=== PATIENT | female | born 1970 | race Caucasian/White ===

== ENCOUNTER → 2016-12-28 | Day surgery (SDC) | payer MEDICARE, BC ==
[~2016-12-28] MED LIST: ADDE30TA PO; ARIC10TA2 PO; ASPI81TA5 PO; BETH25 PO; CARB200T PO; DULA0.5I SQ; ESTR1.5 PO; KLORCONEF PO; LEXA10TA PO; LEXA20TA PO; LIPI40TA PO; LORT7.5T3 PO; LYRI200C PO; MIDAZOLAM HCL 2 MG/2 ML VIAL ONE; MULT-65 PO; NAME10TA PO; ONABOTULINUMTOXINA INJ 100 UNITS/VIAL ONE; OXYC-360 PO; OXYC1TAB36 PO; PANT20TA2 PO; PROPOFOL 200 MG/20 ML AMP IV ONE; REQU5TAB PO; SERO400T PO; SODIUM CHLORIDE 0.9% INJ 10 ML ONE; SOMA350T PO; TAB-TAB PO; VIMP200T PO
--- NOTE | 2016-12-28 15:20 | GIPROC ---
[facility] [address] [place], [address] EGD PROCEDURE REPORT EXAM DATE: 12/28/2016 PATIENT NAME: Sabrina Perkins MR #: [id number] BIRTHDATE: 1970 ATTENDING: Courtney Hoover MD ORDER #: [id number] SYSTEMS PROJECT MANAGER: Laurel Schaefer RN STATUS: outpatient INDICATIONS: The patient is a 46 yr old female here for an EGD due to gastroparesis nausea, vomiting PROCEDURE PERFORMED: EGD w/ biopsy EGD w/ directed submucosal injection(s), any substance MEDICATIONS: None and Per Anesthesia. TOPICAL ANESTHETIC: none CONSENT: The patient understands the risks and benefits of the procedure and understands that these risks include, but are not limited to: sedation, allergic reaction, infection, perforation and/or bleeding. Alternative means of evaluation and treatment include, among others: physical exam, x-rays, and/or surgical intervention. The patient elects to proceed with this endoscopic procedure. medical equipment was checked for proper function. Hand hygiene and appropriate measures for infection prevention was taken. After the risks, benefits and alternatives of the procedure were thoroughly explained, Informed consent was verified, confirmed and timeout was successfully executed by the treatment team. The patient was anesthetized with topical anesthesia and the EC-[id number] ([id number]) and EC-[id number] ([id number]) endoscope was introduced through the mouth and advanced to the second portion of the duodenum. Retroflexed views revealed a hiatal hernia The gastroscope was then slowly withdrawn and removed. Duodenum normal-biopsy to r/o celiac disease retained food in stomach-suctioning gastritis antrum-biopsy esophagitis distal esophgus-white deposits consistent with chema -biopsy. BOTOX injected in pyloric channel-100 units-25 units/quadrant. ADVERSE EVENTS: There were no complications. IMPRESSIONS: 1. Duodenum normal-biopsy to r/o celiac disease retained food in stomach-suctioning gastritis antrum-biopsy esophagitis distal esophgus-white deposits consistent with chema -biopsy 2. Retroflexed views revealed a hiatal hernia RECOMMENDATIONS: 1. Await biopsy results. Biopsy results will not be ready for 7-10 days. If you don't hear from us in two weeks, call our office for biopsy results. 2. Anti-reflux regimen 3. Continue PPI 4. General surgery consult for possible biliary diskinezia breath test for bacterila overgrowth Nystatin swish and swallow fu office if no improvement consider referal tertiary center for small bowel manometry /pacer ? PATIENT CONDITION: stable DISPOSITION: Home REPEAT EXAM: EGD pending biopsy results Courtney Hoover MD eSigned: Courtney Hoover MD 12/28/2016 3:20 PM cc: Emanuel Ventura [facility] Sonia Mujica M.D. PATIENT NAME: Sabrina Perkins MR#: [id number]
== END | disposition home or self-care (01) ==
LOC: ESDC 12:44
PROVIDERS: ATTEND Internal Medicine Gastroenterology
DX: K31.84 Gastroparesis (principal); R11.2 Nausea with vomiting, unspecified; K44.9 Diaphragmatic hernia without obstruction or gangrene; K29.70 Gastritis, unspecified, without bleeding; K20.9 Esophagitis, unspecified
CPT/HCPCS: 00740; 43236; 43239; 88305; 88312; J0585; J2250; J3010

== ENCOUNTER 2017-02-06 20:26 | Emergency (ER) | payer MEDICARE, BC ==
[~2017-02-06] VITALS: Ht 162.6 cm; Wt 70.0 kg
[~2017-02-06 20:26] MED LIST changes: -KLORCONEF PO; -MIDAZOLAM HCL 2 MG/2 ML VIAL ONE; -ONABOTULINUMTOXINA INJ 100 UNITS/VIAL ONE; -PROPOFOL 200 MG/20 ML AMP IV ONE; -SODIUM CHLORIDE 0.9% INJ 10 ML ONE
[2017-02-06 20:27] VITALS: BP 137/69; PULSE 84; RESP 16; TEMP 98.1; O2SAT 97
--- NOTE | 2017-02-06 20:40 | PD ---
Physical Exam Date Seen by Provider: Feb 06, 2017 Time Seen by Provider: 20:36 Narrative 46 yo female here for N/V/D for months. Follows with Dr Sandoval. Everything has been tried with no relief. Continues to throw up whatever she eats. Cannot keep anything down. Was told by Dr Sandoval's office to come and get seen. Vitals stable in triage. Awaiting bed placement. Data Data Last Documented VS Vital Signs Date Time Temp Pulse Resp B/P (MAP) Pulse Ox O2 Delivery O2 Flow Rate FiO2 02/06/17 20:27 98.1 84 16 137/69 (91) 97 Room Air [facility] Medical Record Reviewed: Yes Supervised Visit with ORACIO: Edgar Mcclain Feb 06, 2017 20:40
[2017-02-06] MEDS ORDERED: ONDANSETRON HCL 4 MG/2 ML VIAL IV ONE (22:15)
[2017-02-06] MEDS ORDERED: SODIUM CHLOR 0.9% 1000 ML INJ 1,000 ML IV ONE (22:15)
[2017-02-06 22:42] LABS: AUTOMATED NEUTROPHIL # 2.8 TH/MM3 (1.8-7.7); BASOPHIL # 0.1 TH/MM3 (0-0.2); BASOPHIL % 1.1 % (0.0-2.0); EOSINOPHIL # 0.2 TH/MM3 (0-0.4); EOSINOPHIL % 3.1 % (0.0-4.0); HEMATOCRIT 38.7 % (35.0-46.0); HEMO FLAGS DIFF FINAL; LYMPH % 45.7 % (9.0-44.0); LYMPHOCYTE # 3.2 TH/MM3 (1.0-4.8); MEAN CELL VOLUME 94.6 FL (80.0-100.0); MEAN CORPUSCULAR HEMOGLOBIN 32.1 PG (27.0-34.0); MEAN CORPUSCULAR HGB CONC 33.9 % (32.0-36.0); MONO % 9.5 % (0.0-8.0); NEUT % 40.6 % (16.0-70.0); PLATELET COUNT 453 TH/MM3 (150-450); RED BLOOD COUNT 4.09 MIL/MM3 (4.00-5.30); RED CELL DISTRIBUTION WIDTH 13.8 % (11.6-17.2); WHITE BLOOD COUNT 6.9 TH/MM3 (4.0-11.0)
--- NOTE | 2017-02-06 22:52 | PD ---
HPI Chief Complaint: GI Complaint Time Seen by Provider: 21:41 Travel History International Travel<30 days: No Contact w/Intl Traveler<30days: No Traveled to known affect area: No History of Present Illness HPI The patient is a 46 year old female who presents to the [facility] emergency department with a history of recurrent problems with nausea, vomiting , and diarrhea that began approximately month and a half ago. The patient has been in the process of having this worked up and has seen Dr. Sandoval, a local surgeon as well as Dr. Hoover is a local tour conductor. The patient reports that in the morning she is scheduled to have an on a tree done of her esophagus. She reports that she's been diagnosed with a hiatal hernia and plans to have it surgically repaired by Dr. Sandoval when she has a steady completed. She reports that the midepigastric and right upper quadrant abdominal pain has worsened throughout the day today and she's had difficulty even keeping down cream of wheat. She reports that over the last month that has been the only food that has been staying down. She reports that this morning she has had nausea and vomiting 3. She denies having any diarrhea today. Her last bowel movement was earlier this morning. She denies having any blood in her stool recently, however she reports that a few weeks ago she did have a day with blood in her emesis and blood in her stool. On review of systems otherwise, the patient denies any recent fevers, cough, congestion, neck pain, chest pain, shortness of breath, urinary symptoms, or neurologic symptoms. She has been taking Phenergan for nausea, however it has not been helping. She reports that she is currently taking omeprazole for acid reduction. [facility] Past Medical History Narrative Medical The patient's past medical history is significant for hiatal hernia, gastroparesis, gastritis, seizures. 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 AICD: No Appendectomy: Yes Gynecologic Surgery: Yes (2002 HYSTERECTOMY AND APPENDECTOMY) Hysterectomy: Yes ("COMPLETE IN 1999") Joint Replacement: No Neurologic Surgery: Yes (1990 ANTERIOR CERVICAL FUSION) Pacemaker: No Other Surgery: Yes Social History Alcohol Use: No Tobacco Use: Yes (05/16 PPD) Substance Use: No Allergies-Medications (Allergen,Severity, Reaction): Coded Allergies: acetaminophen (Unverified Allergy, Severe, EXTENDED RELEASE MEDS, 02/06/17) adhesive (Unverified Allergy, Severe, MOST SURGICAL TAPES, 02/06/17) aspirin (Unverified Allergy, Severe, NAUSEA AND VOMITING, 02/06/17) clarithromycin (Unverified Allergy, Severe, HIVES, 02/06/17) cyclobenzaprine (Unverified Allergy, Severe, GASTRIC UPSET, 02/06/17) gabapentin (Unverified Allergy, Severe, GASTRIC UPSET, 02/06/17) ibuprofen (Unverified Allergy, Severe, NAUSEA AND VOMITING, 02/06/17) morphine (Unverified Allergy, Severe, NAUSEA AND VOMITING, 02/06/17) ondansetron (Verified Allergy, Severe, 02/06/17) hives tramadol (Unverified Allergy, Severe, GASTRIC UPSET, 02/06/17) Uncoded Allergies: GUT SUTURES (Adverse Reaction, Intermediate, SUTURES WON'T DISSOLVE, ) Reported Meds & Prescriptions Reported Meds & Active Scripts Active K-Vescent (Potassium Bicarbonate) 25 Meq Tab 25 Meq PO DAILY Reported Oxycodone-Acetaminophen 10-325 mg Tab 1 Tab PO Q6H PRN Aspirin DR (Aspirin) 81 Mg Tabdr 81 Mg PO DAILY Lexapro (Escitalopram Oxalate) 20 Mg Tab 20 Mg PO DAILY Multi-Vitamin Daily (Multiple Vitamin) 1 Tab Tab 1 Tab PO DAILY Soma (Carisoprodol) 350 Mg Tab 350 Mg PO TID PRN Trulicity Inj (Dulaglutide Inj) 1.5 Mg/0.5 Ml Pen 1.5 Mg SQ Q7D PT TAKES TUE EVENINGS Requip (Ropinirole) 5 Mg Tab 6 Mg PO HS Lipitor (Atorvastatin Calcium) 40 Mg Tab 40 Mg PO HS Vimpat (Lacosamide) 200 Mg Tab 200 Mg PO HS Aricept (Donepezil HCl) 10 Mg Tablet 20 Mg PO HS Namenda (Memantine) 10 Mg Tab 10 Mg PO BID Seroquel (Quetiapine Fumarate) 400 Mg Tab 400 Mg PO HS Carbamazepine 200 Mg Tab 200 Mg PO QID Pantoprazole (Pantoprazole Sodium) 20 Mg Tab 20 Mg PO BID Urecholine (Bethanechol Chloride) 25 Mg Tab 25 Mg PO BID Adderall (Amphetamine-Dextroamphetamine) 30 Mg Tab 30 Mg PO DAILY Avoid late evening doses. Space doses at least 4 to 6 hours if more than once/day dosing. Lyrica (Pregabalin) 200 Mg Cap 200 Mg PO TID Review of Systems Except as stated in HPI: all other systems reviewed are Neg General / Constitutional: No: Fever Eyes: No: Visual changes HENT: No: Headaches Cardiovascular: No: Chest Pain or Discomfort Respiratory: No: Shortness of Breath Gastrointestinal: Positive: Nausea, Vomiting, Diarrhea, Hematemesis, Hematochezia (two to 3 weeks ago. ), No: Abdominal Pain Genitourinary: No: Dysuria Musculoskeletal: No: Pain Skin: No Rash Neurologic: No: Weakness Psychiatric: No: Depression Endocrine: No: Polydipsia Hematologic/Lymphatic: No: Easy Bruising Physical Exam Narrative General: The patient is a well-developed well-nourished female in no acute distress. Head and Neck exam: Head is normocephalic atraumatic. Eyes: EOMI, pupils are equal round and reactive to light. Nose: Midline septum with pink mucous membranes Mouth: Dentition unremarkable. Moist mucus membranes. Posterior oropharynx is not erythematous. No tonsillar hypertrophy. Uvula midline. Airway patent. Neck: No palpable lymphadenopathy. No nuchal rigidity. No thyromegaly. Cardiovascular: Regular rate and rhythm without murmurs, gallops, or rubs. Lungs: Clear to auscultation bilaterally. No wheezes, rhonchi, or rales. Abdomen: Soft, with reported tenderness on palpation of the midepigastric and right upper quadrant of the abdomen, no other tenderness on palpation of the other quadrants of the abdomen. Negative Dodge's sign. No tenderness on palpation of McBurney's point. Normal bowel sounds are audible. No guarding, rebound, or rigidity. Extremities: No clubbing, cyanosis, or edema. 2+ pulses in all 4 extremities. No calf tenderness on palpation. Back: No costovertebral angle tenderness to palpation. Neurologic Exam: Grossly nonfocal. Skin Exam: No rash noted. Intact skin that is warm and dry. Data Data Last Documented VS Vital Signs Date Time Temp Pulse Resp B/P (MAP) Pulse Ox O2 Delivery O2 Flow Rate FiO2 02/07/17 01:57 02/07/17 01:40 65 18 98 Room Air 02/06/17 20:27 98.1 Orders Orders Electrocardiogram (02/06/17 22:12) Complete Blood Count With Diff (02/06/17 22:12) Comprehensive Metabolic Panel (02/06/17 22:12) C-Reactive Protein (Crp) (02/06/17 22:12) Lipase (02/06/17 22:12) Urinalysis - C+S If Indicated (02/06/17 22:12) Magnesium (Mg) (02/06/17 22:12) Chest, Single Ap (02/06/17 22:12) Iv Access Insert/Monitor (02/06/17 22:12) Ecg Monitoring (02/06/17 22:12) Oximetry (02/06/17 22:12) Ed Urine Pregnancytest Poc (02/06/17 22:12) Sodium Chlor 0.9% 1000 Ml Inj (Ns 1000 M (02/06/17 22:15) Ondansetron Inj (Zofran Inj) (02/06/17 22:15) Metoclopramide Inj (Reglan Inj) (02/06/17 23:00) Potassium Chloride Eff (K-Lyte Cl Eff) (02/07/17 01:00) Sodium Chlor 0.9% 1000 Ml Inj (Ns 1000 M (02/07/17 01:15) Labs Laboratory Tests Test 02/06/17 22:10 02/07/17 01:00 White Blood Count 6.9 TH/MM3 Red Blood Count 4.09 MIL/MM3 Hemoglobin 13.1 GM/DL Hematocrit 38.7 % Mean Corpuscular Volume 94.6 FL Mean Corpuscular Hemoglobin 32.1 PG Mean Corpuscular Hemoglobin Concent 33.9 % Red Cell Distribution Width 13.8 % Platelet Count 453 TH/MM3 Mean Platelet Volume 7.1 FL Neutrophils (%) (Auto) 40.6 % Lymphocytes (%) (Auto) 45.7 % Monocytes (%) (Auto) 9.5 % Eosinophils (%) (Auto) 3.1 % Basophils (%) (Auto) 1.1 % Neutrophils # (Auto) 2.8 TH/MM3 Lymphocytes # (Auto) 3.2 TH/MM3 Monocytes # (Auto) 0.7 TH/MM3 Eosinophils # (Auto) 0.2 TH/MM3 Basophils # (Auto) 0.1 TH/MM3 CBC Comment DIFF FINAL Differential Comment Blood Urea Nitrogen 7 MG/DL Creatinine 0.71 MG/DL Random Glucose 65 MG/DL Total Protein 6.5 GM/DL Albumin 3.3 GM/DL Calcium Level 8.8 MG/DL Magnesium Level 2.3 MG/DL Alkaline Phosphatase 137 U/L Aspartate Amino Transf (AST/SGOT) 21 U/L Alanine Aminotransferase (ALT/SGPT) 19 U/L Total Bilirubin 0.2 MG/DL Sodium Level 136 MEQ/L Potassium Level 3.1 MEQ/L Chloride Level 98 MEQ/L Carbon Dioxide Level 31.1 MEQ/L Anion Gap 7 MEQ/L Estimat Glomerular Filtration Rate 89 ML/MIN C-Reactive Protein 0.87 MG/DL Lipase 94 U/L Urine Color YELLOW Urine Turbidity CLEAR Urine pH 6.5 Urine Specific [place] 1.014 Urine Protein NEG mg/dL Urine Glucose (UA) NEG mg/dL Urine Ketones NEG mg/dL Urine Occult Blood NEG Urine Nitrite NEG Urine Bilirubin NEG Urine Urobilinogen LESS THAN 2.0 MG/DL Urine Leukocyte Esterase NEG Urine RBC 6 /hpf Urine WBC 2 /hpf Urine Squamous Epithelial Cells <1 /hpf Urine Mucus FEW /lpf Microscopic Urinalysis Comment CULT NOT INDICATED MDM Medical Decision Making Medical Screen Exam Complete: Yes Emergency Medical Condition: Yes Medical Record Reviewed: Yes Interpretation(s) Last Impressions Chest X-Ray 02/06/17 9836 Signed Impressions: Service Date/Time: Monday, February 06, 2017 22:28 - CONCLUSION: 1. No active disease. Bilateral rib fractures and vertebral body fracture, or remote. Figueroa Keen MD Differential Diagnosis Electrolyte derangements, versus dehydration, versus intractable vomiting, versus exacerbation of acid reflux Narrative Course During the course of the patients emergency department visit, the patients history, examination, and differential diagnosis were reviewed with the patient. The patient had IV access obtained and blood work sent for analysis. The patient was placed on a children's service worker with oximetry and blood pressure monitoring. The patient was initially provided Zofran 4 mg IV, normal saline 1 L IV fluid bolus. The patient had continued nausea and was given Reglan 10 mg IV along with a second liter of normal saline IV fluids. The patients laboratory studies were reviewed and remarkable for white count of 6.9, hemoglobin 13.1, platelets 453 with lymphocytes 45.7, monocytes 9.5. CMP is remarkable for potassium of 3.1 which was supplemented orally. Glucose of 65. The patient's blood sugar will be rechecked at the bedside. Alkaline phosphatase 137, C-reactive protein 0.87, albumin 3.3, lipase 94, urinalysis shows 6 rbc's otherwise unremarkable. Blood sugar on reevaluation at the bedside is 96. Radiology studies were reviewed and remarkable for a chest x-ray that shows no active disease, bilateral rib fractures and vertebral body fracture that are remote. The patient was given normal saline 1 L IV fluid bolus. The patient has had no further episodes of vomiting while being observed in the emergency department. At this time additional imaging would not be recommended as the patient's abdominal examination is benign and she recently underwent CT scan of the abdomen and pelvis. Her workup is in progress with her GI specialist and Gen. Surgeon. The patient is resting comfortably and feels better, is alert and in no distress. The patients results and examination findings were discussed with the patient. The repeat examination is unremarkable and benign. The history, exam, diagnostic testing, and current condition do not suggest any significant pathology to warrant further testing, continued ED treatment, admission, or surgical evaluation at this point. The vital signs have been stable. The patient does not have uncontrollable pain, intractable vomiting, or other significant symptoms. The patient's condition is stable and appropriate for discharge. The patient will pursue further outpatient evaluation with a primary care physician or other designated or consulting physician as indicated in the discharge instructions. The patient expressed understanding and was agreeable with this plan. Diagnosis Primary Impression: Nausea & vomiting Qualified Codes: R11.2 - Nausea with vomiting, unspecified Additional Impression: Hiatal hernia Referrals: Courtney Hoover MD 1 week Bello Sandoval MD 1 day Patient Instructions: Abdominal Pain (ED), Acute Nausea and Vomiting (ED), General Instructions Med/Other Pt SpecificInfo: Prescription(s) given Scripts Potassium Bicarbonate Effervescent (K-Vescent) 25 Meq Tab 25 MEQ PO DAILY for Electrolyte Replacement, #7 TAB 0 Refills Prov: Shayla Alexis MD 02/07/17 Disposition: 01 DISCHARGE HOME Condition: Stable Shayla Alexis MD Feb 06, 2017 22:52
[2017-02-06] MEDS ORDERED: METOCLOPRAMIDE HCL 10 MG/2 ML VIAL IV PUSH ONE (23:00)
[2017-02-06 23:05] LABS: ALT (GPT) 19 U/L (10-53); ANION GAP 7 MEQ/L (5-15); AST (GOT) 21 U/L (15-37); BICARBONATE 31.1 MEQ/L (21.0-32.0); BLOOD UREA NITROGEN 7 MG/DL (7-18); CHLORIDE 98 MEQ/L (98-107); GLOMERULAR FILTRATION RATE 89 ML/MIN (>89); MAGNESIUM 2.3 MG/DL (1.5-2.5); POTASSIUM 3.1 MEQ/L (3.5-5.1); SODIUM (NA) 136 MEQ/L (136-145)
[2017-02-06 23:07] LABS: ALKALINE PHOSPHATASE 137 U/L (45-117); TOTAL BILIRUBIN ADULT 0.2 MG/DL (0.2-1.0)
--- NOTE | 2017-02-06 23:18 | RADRPT ---
EXAM DATE/TIME: 02/06/2017 22:28 [facility] COMPARISON: No previous studies available for comparison. INDICATIONS : Chest pain and short of breath. MEDICAL HISTORY : Pericardial effusion. SURGICAL HISTORY : None. ENCOUNTER: Initial ACUITY: 1 day PAIN SCORE: 5/10 LOCATION: Bilateral chest FINDINGS: A single view of the chest demonstrates minimal basilar atelectasis. Remote bilateral rib fractures a nd fracture at the thoracolumbar junction with kyphoplasty. Mild scoliosis. Previous fusion lower cer vical spine. No effusion. No pneumothorax. CONCLUSION: 1. No active disease. Bilateral rib fractures and vertebral body fracture, or remote. Figueroa Keen MD on February 06, 2017 at 23:14 Board Certified Radiologist. This report was verified electronically.
[2017-02-07 00:17] VITALS: BP 99/52; PULSE 65; RESP 20; O2SAT 97
[2017-02-07] MEDS ORDERED: POTASSIUM CHLORIDE 25 MEQ EFFERVESCENT TAB PO ONE (01:00)
[2017-02-07 01:07] LABS: BLOOD, URINE NEG (NEG); COMMENT (UR) CULT NOT INDICATED; CULTURE IF INDICATED CULT NOT INDICATED; GLUCOSE,URINE NEG (NEG); KETONE, URINE NEG (NEG); MUCUS URINE FEW /lpf (OCC); NITRITE,URINE NEG (NEG); PH, URINE 6.5 (5.0-8.5); SQUAMOUS EPITHELIAL CELL URINE <1 /hpf (0-5); URINE COLOR YELLOW (YELLW/STRAW)
[2017-02-07] MEDS ORDERED: SODIUM CHLOR 0.9% 1000 ML INJ 1,000 ML IV ONE (01:15)
[2017-02-07] MEDS ORDERED: KLORCONEF PO (01:39)
[2017-02-07 01:40] VITALS: BP 128/58; PULSE 65; RESP 18; O2SAT 98
--- NOTE | 2017-02-07 11:39 | EKG ---
Date Performed: 02/07/2017 Time Performed: 00:12:32 PTAGE: 46 years EKG: Sinus rhythm WITH FIRST DEGREE AV BLOCK ABNORMAL ECG NO PREVIOUS TRACING DOCTOR: Darin Alexis Interpretating Date/Time 02/07/2017 11:36:42
== END 2017-02-07 02:15 | disposition home or self-care (01) ==
LOC: NEPC 20:26
DX: R11.2 Nausea with vomiting, unspecified (principal); R94.31 Abnormal electrocardiogram [ECG] [EKG]; K44.9 Diaphragmatic hernia without obstruction or gangrene; R19.7 Diarrhea, unspecified; Z72.0 Tobacco use; K20.9 Esophagitis, unspecified; K31.84 Gastroparesis
CPT/HCPCS: 71010; 80053; 81001; 83690; 83735; 84703; 85025; 86140; 93005; 96361; 96374; 99285; J2765; J7030; 91010

== ENCOUNTER → 2017-02-07 | Outpatient (CLI) | payer MEDICARE, BC ==
[~2017-02-07] VITALS: Ht 162.6 cm; Wt 68.2 kg
[~2017-02-07] MED LIST changes: -ESTR1.5 PO; +KLORCONEF PO; -LEXA10TA PO; -LORT7.5T3 PO; -OXYC-360 PO; -TAB-TAB PO
[2017-02-07 07:40] VITALS: BP 117/62; PULSE 86; RESP 16; TEMP 98.3; O2SAT 98
== END ==
LOC: HSDC 07:23
PROVIDERS: ATTEND Internal Medicine Gastroenterology
DX: K20.9 Esophagitis, unspecified (principal); K31.84 Gastroparesis; K44.9 Diaphragmatic hernia without obstruction or gangrene
CPT/HCPCS: 91010

== ENCOUNTER 2017-02-24 08:30 | Day surgery (SDC) | payer MEDICARE, BC ==
[2017-02-24] VITALS (7 sets, daily range): BP systolic 94–119; BP diastolic 56–77; PULSE 63–77; RESP 16–20; TEMP 97.3–97.7; O2SAT 90–95
[~2017-02-24] VITALS: Ht 162.6 cm; Wt 63.8 kg
[2017-02-24] MEDS ORDERED: IOHEXOL 300 MG/ML 50 ML BTL (for RAD DIAG) J-TUBE ONE (08:31)
[2017-02-24] MEDS ORDERED: SODIUM CHLORIDE 0.9% 1000 ML IV SCH (09:00)
[2017-02-24] MEDS ORDERED: ceFAZolin 2 GM PREMIX 50 ML - gastrostomy and jejunostomy initial insertion IV SCH (09:15)
[2017-02-24] MEDS ORDERED: DIAZEPAM 10 MG TAB ONE (09:42)
[2017-02-24 09:46] LABS: AUTOMATED NEUTROPHIL # 5.1 TH/MM3 (1.8-7.7); BASOPHIL # 0.1 TH/MM3 (0-0.2); EOSINOPHIL # 0.3 TH/MM3 (0-0.4); EOSINOPHIL % 3.8 % (0.0-4.0); HEMATOCRIT 37.2 % (35.0-46.0); HEMO FLAGS DIFF FINAL; LYMPH % 22.3 % (9.0-44.0); LYMPHOCYTE # 1.7 TH/MM3 (1.0-4.8); MEAN CELL VOLUME 94.7 FL (80.0-100.0); MEAN CORPUSCULAR HEMOGLOBIN 32.2 PG (27.0-34.0); MONO % 5.2 % (0.0-8.0); NEUT % 67.7 % (16.0-70.0); PLATELET COUNT 343 TH/MM3 (150-450); RED BLOOD COUNT 3.93 MIL/MM3 (4.00-5.30); RED CELL DISTRIBUTION WIDTH 13.8 % (11.6-17.2); WHITE BLOOD COUNT 7.5 TH/MM3 (4.0-11.0)
[2017-02-24 09:57] LABS: APTT (PATIENT) 28.2 SEC (24.3-30.1); PROTHROMBIN TIME - PATIENT 10.6 SEC (9.8-11.6)
[2017-02-24] MEDS ORDERED: GLUCAGON 1 MG/ML VIAL ONE (10:10)
[2017-02-24] MEDS ORDERED: MIDAZOLAM HCL 5 MG/5 ML VIAL ONE (10:10)
--- NOTE | 2017-02-24 11:23 | PD.RAD ---
Post Procedure Progress Note Pre Procedure Diagnosis: (1) Nausea & vomiting (2) Gastroparesis Post Procedure Diagnosis: (1) Nausea & vomiting (2) Gastroparesis Procedure Date: Feb 24, 2017 Supervising Radiologist: Yuval Belle Estimated blood loss: 2cc Anesthesia: Local, Conscious Sedation Plan of Activity Patient to Unit: ROPU Patient Condition: Good Additional Comments: G/J tube placed without difficulty. Tube verified to be in good position OK for use. Full dictated report to follow. See PACS Report for procedural detail/treatment Yuval Belle MD Feb 24, 2017 11:23
--- NOTE | 2017-02-27 07:13 | RADRPT ---
EXAM DATE/TIME: 02/24/2017 09:55 [facility] COMPARISON: No previous studies available for comparison. INDICATIONS : Patient presents with Gastroparesis in need of Gastrojejunostomy tube placement. MEDICAL HISTORY : Hiatal hernia Gastroparesis Gastritis Seizures IBS Osteoarthritis Osteoperosis Fibromyalgia Anxiety SURGICAL HISTORY : Appendectomy Abdominal hiatal hernia repair Neck surgery times 2 Right femur ORIF Right shoulder surgery Hysterectomy Kyphoplasty of T12 ENCOUNTER: Initial ACUITY: 2 months PAIN SCORE: 6/10 LOCATION: Right upper quadrant FLUORO TIME: 9.3 minutes IMAGE SERIES: 3 SEDATION TIME: 35 minutes CONTRAST: 35 cc Omnipaque (iohexol) 350 MEDICATION(S): 1.) 4 mg midazolam (Versed) IV 2.) 200 mcg Fentanyl (Sublimaze) IV 3.) 1 mg glucagon (Gluca-Gen) IV DEVICE(S): 1.) 18 Fr gastrojejunostomy tube PROCEDURE : 1. Limited abdominal ultrasound. 2. Fluoroscopically guided gastrojejunostomy tube placement. 3. Conscious sedation with continuous EKG and oximetry monitoring. The risks, benefits and alternatives to the procedure were explained and verbal and written consent w as obtained. The site was prepped in sterile fashion. Full sterile technique was used, including ca p, mask, sterile gloves and gown and a large sterile sheet. Hand hygiene and 2% chlorhexidine and/or betadine/alcohol prep was utilized per protocol for cutaneous antisepsis. The skin and subcutaneous tissues were infiltrated with local anesthetic solution. Sterile gel and sterile probe cover were utilized for ultrasound guidance. Ultrasound was used to vanesa the position of the liver. 1 mg of Glucagon was administered. The stoma ch was insufflated with room air using. Three percutaneous fasteners were placed to secure the anteri or gastric wall. A small incision was made between the fasteners. The stomach was accessed with an 18 gauge needle. A n 0.035 wire was advanced into the small bowel. The tract was dilated. The gastrojejunostomy tube w as introduced through a peel-away sheath. The position was confirmed with an injection of contrast in both the gastric and jejunal lumens. Conscious sedation was performed with the prescribed dosages and duration as above in the presence of an independent trained radiology nurse to assist in the monitoring of the patient. EKG and oximetry remained stable throughout the procedure. The patient tolerated the procedure well and there were n o complications. The patient was sent to post anesthesia recovery in stable condition. CONCLUSION: Uncomplicated gastrojejunostomy tube placement as above. Yuval Belle MD on February 27, 2017 at 7:12 Board Certified Radiologist. This report was verified electronically.
== END 2017-02-24 14:35 | disposition home or self-care (01) ==
LOC: HRIP 08:30 → HROP 08:30
PROVIDERS: ATTEND Internal Medicine Gastroenterology
DX: Z43.1 Encounter for attention to gastrostomy (principal); K31.84 Gastroparesis; K58.9 Irritable bowel syndrome, unspecified; F41.9 Anxiety disorder, unspecified
CPT/HCPCS: 49440; 49446; 85025; 85610; 85730; 99152; 99153; C1769; C1887; J0690; J1610; J2250; J3010; J7030; Q9967

== ENCOUNTER 2017-03-01 11:18 | Day surgery (SDC) | payer MEDICARE, BC ==
[~2017-03-01 11:18] MED LIST changes: -DULA0.5I SQ
[2017-03-01 11:37] VITALS: BP 126/79; PULSE 74; RESP 20; TEMP 98.3; O2SAT 93
== END 2017-03-01 11:55 | disposition home or self-care (01) ==
LOC: HROP 11:18 → HRIP 11:19 → HROP 11:55
DX: K94.23 Gastrostomy malfunction (principal); K59.09 Other constipation